=== PATIENT | male | born 1965 | race Caucasian/White ===

== ENCOUNTER 2024-02-19 06:31 | Day surgery (SDC) | payer BC, OTHER ==
[2024-02-19] MEDS: Lactated Ringers 1,000 ML IV SCH (06:57)
[2024-02-19] MEDS ORDERED: propofoL 50 ML ONE (07:30)
[2024-02-19] MEDS ORDERED: fentaNYL 100 MCG/2 ML SDV ONE (08:19)
[2024-02-19] MEDS ORDERED: Propofol 200 MG/20 ML SDV ONE ×2 (08:21→08:32)
[2024-02-19] MEDS ORDERED: Lactated Ringers 1,000 ML IV SCH (09:00)
== END 2024-02-19 09:15 | disposition home or self-care (01) ==
LOC: MW.SDS 06:31
PROVIDERS: ATTEND Surgery
DX: Z12.11 Encounter for screening for malignant neoplasm of colon (principal); E78.5 Hyperlipidemia, unspecified; E66.9 Obesity, unspecified; Z68.35 Body mass index [BMI] 35.0-35.9, adult; R73.03 Prediabetes; Z79.899 Other long term (current) drug therapy
CPT/HCPCS: 45378; J2704; J3010; J7120; 00811